=== PATIENT | female | born 1940 | race Caucasian/White ===

== ENCOUNTER 2017-03-08 08:59 | Outpatient (CLI) | payer MEDICARE, MEDICAID ==
--- NOTE | 2017-03-09 15:01 | DEXA Report ---
DEXA SCAN: 03/08/2017 CLINICAL INDICATION: Osteoporosis. TECHNIQUE: Dual energy x-ray absorptiometry (DXA) was performed on a [employer] system. Regions measured are the AP spine, femoral neck, and, if needed, forearm. COMPARISON: None. In accordance with the International Society for Clinical Densitometry (ISCD) guidelines, data from previous exams may be reanalyzed using current recommendations and techniques. This is done to allow a more accurate basis for comparison with the current study. FINDINGS: The data for the lumbar spine is as follows: REGION BMD (g/cm/cm) T-SCORE Z-SCORE L1 0.536 -4.9 -2.8 L2 0.674 -4.4 -2.3 L3 0.941 -2.2 -0.1 L4 0.854 -2.9 -0.8 TOTAL 0.750 -3.6 -1.5 NOTE: All evaluable vertebrae are used for classification. The data for the hip is as follows: REGION BMD (g/cm/cm) T-SCORE Z-SCORE Neck 0.614 -3.0 -0.9 TOTAL 0.644 -2.9 -0.9 NOTE: The femoral neck or total proximal femur, whichever is lowest, is used for classification. * Denotes significant change at the 95% confidence level. Denotes dissimilar scan types or analysis methods. IMPRESSION: THE WHO CLASSIFICATION BASED ON THE INTERNATIONAL REFERENCE STANDARD IS OSTEOPOROSIS. THE FRACTURE RISK IS HIGH. RECOMMENDATION: Patients with diagnosis of osteoporosis or osteopenia should have regular bone mineral density assessment. For those eligible for Medicare, routine testing is allowed once every 2 years. Testing frequency can be increased for patients who have rapidly progressing disease or for those who are receiving medical therapy to restore bone mass. COMMENT: World Health Organization (WHO) definitions for osteoporosis and osteopenia: NORMAL BMD: T-score at -1.0 or higher, fracture risk is low. OSTEOPENIA BMD: T-score between -1.0 and -2.5, fracture risk is increased. OSTEOPOROSIS BMD: T-score at -2.5 or lower, fracture risk high. National Osteoporosis Foundation recommends: 1. Obtain adequate dietary calcium (at least 1200 mg per day) and vitamin D (400 -800 international units per day). 2. Participate, as appropriate, in regular weightbearing and muscle- strengthening exercise. 3. Avoid tobacco use and reduce alcohol and caffeine intake. 4. For more detailed information see the website at www.NOF.org. MTDD
== END 2017-03-08 09:00 | disposition home or self-care (01) ==
LOC: DI 08:59
PROVIDERS: ATTEND Physician Assistant
DX: M81.0 Age-related osteoporosis without current pathological fracture (principal)
CPT/HCPCS: 77080

== ENCOUNTER 2017-03-08 09:03 | Outpatient (CLI) | payer MEDICARE, MEDICAID | END 2017-03-08 09:04 | disposition home or self-care (01) | LOC: DI 09:03 | PROVIDERS: ATTEND Physician Assistant | DX: Z53.9 Procedure and treatment not carried out, unspecified reason (principal) ==

== ENCOUNTER 2017-03-22 10:50 | Outpatient (CLI) | payer MEDICARE, MEDICAID ==
--- NOTE | 2017-03-22 16:44 | Mammography Report ---
DIGITAL DIAGNOSTIC BILATERAL MAMMOGRAM: 03/22/2017 CLINICAL INDICATION: Focal right breast pain. TECHNIQUE: Bilateral CC and MLO views, right true lateral view and laterally exaggerated craniocauda l view. COMPARISON: 04/08/2015, 06/07/2013, 11/03/2011, 05/13/2010. The breasts demonstrate scattered fibroglandular densities bilaterally. Postreduction changes are st able. Coarse and punctate, typically benign calcifications are present. No suspicious masses, clust ered microcalcifications, or regions of architectural distortion are identified. Specifically, no ma mmographic abnormality is seen in the right lower-outer posterior breast, at the site indicated by th e markers. IMPRESSION: BENIGN FINDINGS. RECOMMENDATION: ROUTINE ANNUAL SCREENING UNLESS OTHERWISE CLINICALLY INDICATED. BIRADS CATEGORY: 2, BENIGN FINDINGS. STANDARD QUALIFYING STATEMENTS 1. This examination was reviewed with the aid of Computed-Aided Detection (CAD). 2. A negative or benign imaging report should not delay biopsy if clinically suspicious findings are present. Consider surgical consultation if warranted. More than 5% of cancers are not identified b y imaging. 3. Dense breasts may obscure an underlying neoplasm. JOB #: [id number] EXT JOB #:[id number]
== END 2017-03-22 10:51 | disposition home or self-care (01) ==
LOC: DI 10:50
PROVIDERS: ATTEND Physician Assistant
DX: N64.4 Mastodynia (principal)
CPT/HCPCS: 77066

== ENCOUNTER 2017-04-11 11:23 | Outpatient (CLI) | payer MEDICARE, MEDICAID ==
[2017-04-11 12:05] LABS: BASOPHILS % (AUTO) 0.3 %; EOSINOPHILS # (AUTO) 0.1 10^3/uL (0.0-0.7); EOSINOPHILS % (AUTO) 1.6 %; HGB - HEMOGLOBIN 12.4 g/dL (12.0-16.0); LYMPHOCYTES # (AUTO) 1.6 10^3/uL (1.5-3.5); LYMPHOCYTES % (AUTO) 26.9 %; MEAN CORPUSCULAR HEMOGLOBIN 26.2 pg (27.0-31.0); MEAN CORPUSCULAR HGB CONC 32.7 g/dL (32.0-36.0); MEAN CORPUSCULAR VOLUME 80.2 fL (81.0-99.0); MEAN PLATELET VOLUME 8.2 fL (7.9-10.8); MONOCYTES # (AUTO) 0.6 10^3/uL (0.0-1.0); MONOCYTES % (AUTO) 9.4 %; NEUTROPHILS # (AUTO) 3.8 10^3/uL (1.5-6.6); NEUTROPHILS % (AUTO) 61.8 %; NUCLEATED RED BLOOD CELLS AUTO 0.1 /100WBC; RED BLOOD COUNT 4.73 10^6/uL (4.20-5.40); RED CELL DISTRIBUTION WIDTH 15.2 % (12.0-15.0); UNCORRECTED WHITE BLOOD COUNT 6.1 x10^3/uL; WHITE BLOOD COUNT 6.1 x10^3/uL (4.8-10.8)
[2017-04-11 12:27] LABS: ALBUMIN/GLOBULIN RATIO 1.2 (1.0-2.2); BILIRUBIN,TOTAL 0.5 mg/dL (0.2-1.0); BUN - BLOOD UREA NITROGEN 22 mg/dL (6-20); CALCIUM 9.2 mg/dL (8.5-10.3); CARBON DIOXIDE - CO2 26 mmol/L (21-32); CHLORIDE 104 mmol/L (101-111); CHOL/HDL RATIO 7.4 (<4.4); CHOLESTEROL 302 mg/dL; CREATININE 0.6 mg/dL (0.4-1.0); GFR - MDRD 97 (>89); GLUCOSE 118 mg/dL (70-100); HDL CHOLESTEROL 41 mg/dL; LDL/HDL RATIO 4.9 (<4.4); SODIUM 139 mmol/L (135-145); TOTAL PROTEIN 7.6 g/dL (6.7-8.2); TRIGLYCERIDES 293 mg/dL; VLDL CHOLESTEROL 59 mg/dL
== END 2017-04-11 11:24 | disposition home or self-care (01) ==
LOC: LAB 11:23
PROVIDERS: ATTEND Physician Assistant
DX: M81.0 Age-related osteoporosis without current pathological fracture (principal); E87.2 Acidosis; Z79.899 Other long term (current) drug therapy
CPT/HCPCS: 36415; 80053; 80061; 82306; 85025

== ENCOUNTER 2017-05-02 11:12 | Outpatient (CLI) | payer MEDICARE, MEDICAID ==
[2017-05-02 13:27] LABS: HEMOGLOBIN A1C 0.66 g/dL
== END 2017-05-02 11:13 | disposition home or self-care (01) ==
LOC: LAB 11:12
PROVIDERS: ATTEND Physician Assistant
DX: R73.01 Impaired fasting glucose (principal)
CPT/HCPCS: 36415; 83036

== ENCOUNTER 2017-11-21 15:12 | Outpatient (CLI) | payer MEDICARE, MEDICAID | END 2017-11-21 15:13 | disposition EMS.NT | LOC: EMS 15:12 | PROVIDERS: ATTEND Surgery | DX: S00.571A Other superficial bite of lip, initial encounter (principal); W01.0XXA Fall on same level from slipping, tripping and stumbling without subsequent striking against object, initial encounter; Y93.01 Activity, walking, marching and hiking; Y92.480 Sidewalk as the place of occurrence of the external cause ==

== ENCOUNTER 2019-06-12 14:11 | Outpatient (CLI) | payer MEDICARE, MEDICAID ==
--- NOTE | 2019-06-13 09:04 | DEXA Report ---
Reason: HISTORY OF OSTEOPOROSIS Procedure Date: 06/12/2019 Accession Number: [id number] / [id number] Procedure: DEX - Dexa Spine and/or Hip CPT Code: FULL RESULT: EXAM: Dexa Spine and/or Hip DATE: 06/12/2019 3:00 PM CLINICAL HISTORY: HISTORY OF OSTEOPOROSIS. For follow-up TECHNIQUE: Dual energy x-ray absorptiometry (DXA) was performed on a [employer] System. Regions measured are the AP Spine, femoral neck, and if needed forearm. COMPARISON: 03/08/2017 In accordance with the International Society for Clinical Densitometry (ISCD) guidelines, data from previous exams may be reanalyzed using current recommendations and techniques. This is done to allow a more accurate basis for comparison with the current study. FINDINGS: The data for the lumbar spine is as follows: BMD (g/cm/cm) T-SCORE Z-SCORE REGION L1 0.656 -4.0 -1.7 L2 0.950 -2.1 0.2 L3 1.001 -1.7 0.6 L4 0.895 -2.5 -0.3 TOTAL 0.886 -2.4 -0.2 NOTE: All evaluable vertebrae are used for classification The data for the hip is as follows: BMD (g/cm/cm) T-SCORE Z-SCORE REGION Neck 0.617 -3.0 -0.7 TOTAL 0.634 -3.0 -0.7 DXA RESULTS SUMMARY: Spine SCAN DATE A[age] BMD CHANGE VS CHANGE VS PREVIOUS PREVIOUS % 7[birth year]12[birth year]2019 [age] 0.89 0.136* 18.1* 03/08/2017 [age] 0.750 * Denotes significant change at the 95% confidence level. Denotes dissimilar scan types or analysis methods. DXA RESULTS SUMMARY: Hip SCAN DATE AGE BMD CHANGE VS CHANGE VS PREVIOUS PREVIOUS % 7/[birth year]2019 [age] 0.634 -0.010 -1.6 03/08/2017 [age] 0.644 * Denotes significant change at the 95% confidence level. Denotes dissimilar scan types or analysis methods. IMPRESSION: THE WHO CLASSIFICATION BASED ON THE INTERNATIONAL REFERENCE STANDARD IS OSTEOPOROSIS, REFERENCE LEFT HIP. THE FRACTURE RISK IS HIGH. RECOMMENDATION: Patients with diagnosis of osteoporosis or osteopenia should have regular bone mineral density assessment. For those eligible for Medicare, routine testing is allowed once every 2 years. Testing frequency can be increased for patients who have rapidly progressing disease or for those who are receiving medical therapy to restore bone mass. COMMENT: World Health Organization (WHO) definitions for osteoporosis and osteopenia: NORMAL BMD: T-score at -1.0 or higher, fracture risk is low OSTEOPENIA BMD: T-score between -1.0 and -2.5, fracture risk is increased. OSTEOPOROSIS BMD: T-score at -2.5 or lower, fracture risk is high. National Osteoporosis Foundation recommends: 1. Obtain adequate dietary calcium (at least 1200 mg per day) and vitamin D (400-800 international units per day). 2. Participate, as appropriate, in regular weightbearing and muscle-strengthening exercise. 3. Avoid tobacco use and reduce alcohol and caffeine intake. 4. For more detailed information see the website at www.NOF.org.
== END 2019-06-12 14:12 | disposition home or self-care (01) ==
LOC: DI 14:11
PROVIDERS: ATTEND Student in an Organized Health Care Education/Training Program
DX: M81.0 Age-related osteoporosis without current pathological fracture (principal)
CPT/HCPCS: 77080

== ENCOUNTER 2019-06-12 14:13 | Outpatient (CLI) | payer MEDICARE, MEDICAID ==
--- NOTE | 2019-06-13 09:25 | Mammography Report ---
Reason: SCREENING MAMMO Procedure Date: 06/12/2019 Accession Number: [id number] / [id number] Procedure: CHANDRA - Screening Mammo w/Jabari CPT Code: FULL RESULT: EXAM: Screening Mammo w/Jabari DATE: 06/12/2019 3:34 PM CLINICAL HISTORY: Routine screening TECHNIQUE: (B) - Bilateral CC and MLO views were obtained. COMPARISON: 03/22/2017, 04/08/2015, 06/07/2013 and 11/03/2011 PARENCHYMAL PATTERN: (F) - The breasts demonstrate diffuse fatty replacement bilaterally. FINDINGS: No significant interval change on the left. Multiple nodular densities and scattered benign-appearing calcifications are stable. On the right there is a new 5 mm nodule in the middle third of the upper outer breast approximately 6 cm from the nipple. There are no suspicious calcifications or areas of distortion. IMPRESSION: 1. Benign findings left breast. 2. Tiny 5 mm new nodule central right breast for which spot compression and true lateral views and possible ultrasound are suggested. RECOMMENDATION: (ADDMU) - Additional views using both Mammography and Ultrasound recommended. Right breast BI-RADS CATEGORY: (0) - Incomplete Examination - need additional evaluation. STANDARD QUALIFYING STATEMENTS: 1. This examination was not reviewed with the aid of Computer-Aided Detection (CAD). 2. A negative or benign imaging report should not preclude biopsy if clinically suspicious findings are present. 3. Dense breasts may obscure an underlying neoplasm. 4. This examination was reviewed with the aid of 3D breast imaging (tomosynthesis).
== END 2019-06-12 14:14 | disposition home or self-care (01) ==
LOC: DI 14:13
DX: Z12.31 Encounter for screening mammogram for malignant neoplasm of breast (principal); R92.8 Other abnormal and inconclusive findings on diagnostic imaging of breast
CPT/HCPCS: 77063; 77067

== ENCOUNTER 2019-07-05 07:23 | Outpatient (CLI) | payer MEDICARE, MEDICAID ==
--- NOTE | 2019-07-05 09:08 | Mammography Report ---
Reason: ABNORMAL MAMMOGRAM Procedure Date: 07/05/2019 Accession Number: [id number] / [id number] Procedure: CHANDRA - Diag Special Views Dig RT CPT Code: FULL RESULT: EXAM: Diag Special Views Dig RT DATE: 07/05/2019 8:10 AM CLINICAL HISTORY: Diagnostic examination. History of late childbearing and early menses. History of benign left and right breast biopsy. Patient is recalled from screening for a new right breast nodule. TECHNIQUE: (R) - Right spot CC, spot MLO and ML images as well as targeted right breast ultrasound are performed. COMPARISON: 06/12/2019 through 11/03/2011. PARENCHYMAL PATTERN: (F) - The breast(s) demonstrate(s) diffuse fatty replacement. FINDINGS: Is 0.3 cm isodense well-circumscribed nodule is confirmed on mammographic spot views and tomographic views approximately 6.5 cm from the nipple in the right central breast, approximately 8:00 position. Corresponding to the mammographic finding is a probably benign 0.3 x 0.4 cm benign on wider than tall well circumscribed lesion with internal separations, probably a benign cluster of microcysts, increased through transmission is not demonstrated potentially due to small size. There may be a small soft tissue component. Sonographically, the finding resides at the 8:00 position approximately 3 cm from the nipple. There are no suspicious masses, calcifications, or areas of distortion. IMPRESSION: Probably Benign. BI-RADS category 3. RECOMMENDATION: (6MOS) - Recommend 6 month follow-up exam. Right breast targeted ultrasound. BI-RADS CATEGORY: (3) - Probably Benign. STANDARD QUALIFYING STATEMENTS: 1. This examination was not reviewed with the aid of Computer-Aided Detection (CAD). 2. A negative or benign imaging report should not preclude biopsy if clinically suspicious findings are present. 3. Dense breasts may obscure an underlying neoplasm. 4. This examination was reviewed with the aid of 3D breast imaging (tomosynthesis).
== END 2019-07-05 07:24 | disposition home or self-care (01) ==
LOC: DI 07:23
PROVIDERS: ATTEND Family Medicine
DX: R92.8 Other abnormal and inconclusive findings on diagnostic imaging of breast (principal)
CPT/HCPCS: 76642

== ENCOUNTER 2020-11-25 14:42 | Outpatient (CLI) | payer MEDICARE, MEDICAID ==
--- NOTE | 2020-11-26 15:07 | Mammography Report ---
BILATERAL DIGITAL SCREENING MAMMOGRAM 3D/2D: 11/25/2020 CLINICAL: Routine screening. Comparison is made to exams dated: 06/12/2019 mammogram, 03/12/2017 mammogram, 04/08/2015 mammogram, 07/05 mammogram, and 05/09/2020 ultrasound - [facility]. The tissue of both breasts is predominantly fatty. No significant masses, calcifications, or other findings are seen in either breast. There has been no significant interval change. IMPRESSION: NEGATIVE There is no mammographic evidence of malignancy. A 1 year screening mammogram is recommended. This exam was interpreted at Station ID: [id number]. NOTE: For mammograms, a report in lay terms will be sent to the patient. Approximately 15% of breast malignancies will not be visualized mammographically. In the management of a palpable breast mass, a negative mammogram must not discourage biopsy of a clinically suspicious lesion. Electronically Signed By: Norberto Stein M.D. ar/penrad:11/25/2020 15:34:42 ACR BI-RADS Category 1: Negative 3341F PARENCHYMAL PATTERN: (F) - The breast(s) demonstrate(s) diffuse fatty replacement. BI-RADS CATEGORY: (1) - 1 RECOMMENDATION: (ANNUAL) - Recommend routine annual screening mammography. [id number] 1 year screening LATERALITY: (B)
== END 2020-11-25 14:43 | disposition home or self-care (01) ==
LOC: DI 14:42
DX: Z12.31 Encounter for screening mammogram for malignant neoplasm of breast (principal)

== ENCOUNTER 2021-05-04 07:52 | Outpatient (CLI) | payer MEDICARE, MEDICAID ==
--- NOTE | 2021-05-04 11:08 | CT Report ---
PROCEDURE: MAXILLOFACIAL WO INDICATIONS: Cyst of Jaw TECHNIQUE: Noncontrast 1.5 mm thick axial images acquired from the mandible through the frontal sinuses, with co tiffany and sagittal reformatting. For radiation dose reduction, the following was used: automated ex posure control, adjustment of mA and/or kV according to patient size. COMPARISON: None. FINDINGS: Image quality: Degraded by beam hardening artifact related to metallic orthopedic hardware. Bones and teeth: Upper left second and third molars are absent. Upper right third molar is absent. Th e lower left third molar is absent. Lower right second and third molars are absent. 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 Diffuse thickening of the left lat eral maxillary sinus wall/inferior left orbital wall which could be due to chronic inflammation or fi brous dysplasia. Nasal bones are intact. A large defect is noted in the anterior nasal septum compati ble with dehiscence Visualized portions of the mandible demonstrate no fractures or subluxation. Zyg omatic arches are intact. Pterygoid plates are intact. Visualized portions of the skull base and au ditory canals are intact. Cervical spine degenerative disc changes. Sinuses: Mucosal thickening noted in the left maxillary sinus, left ethmoid air cells, the left front al sinus and the bilateral sphenoid sinuses. Mastoid air cells are aerated. Soft tissues: No edema, masses, or fluid collections. No enlarged lymph nodes. No soft tissue lace rations or debris. Vascular: Visualized vascular structures appear normal in the absence of contrast. Atherosclerotic c alcifications noted in the cavernous and clinoid segments of the internal carotid arteries bilaterall y. Bony vascular foramina and canals are intact. 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 3. Diffuse thickening of the left lateral maxillary sinus wall/left inferior orbital wall which could be due to chronic inflammation versus fibrous dysplasia. 4. Mucosal thickening involving the sphenoid sinuses bilaterally, left maxillary sinus, left ethmoid air cells and left frontal sinus. Reviewed by: Argentina Dan MD, PhD on 05/04/2021 11:06 AM PDT Approved by: Argentina Dna MD, PhD on 05/04/2021 11:06 AM PDT Station ID: [id number]
== END 2021-05-04 07:53 | disposition home or self-care (01) ==
LOC: LAB 07:52 → DI 07:53
PROVIDERS: ATTEND Dentist Oral and Maxillofacial Surgery
DX: M27.40 Unspecified cyst of jaw (principal); J32.0 Chronic maxillary sinusitis
CPT/HCPCS: 36415; 82565

== ENCOUNTER 2021-05-18 11:40 | Day surgery (SDC) | payer MEDICARE ==
[~2021-05-18 11:40] MED LIST: CHLORHEXIDINE GLUCONATE 15 ML UDC PO ONE; ceFAZolin 2 GM/50 ML 2 GM/50 ML BAG IV ONE
[2021-05-18] MEDS ORDERED: LACTATED RINGERS 1,000 ML IV ONE ×2 (11:42→15:16)
[2021-05-18] MEDS ORDERED: BUPIVACAINE 0.5%-EPI 1:200000 PF 30 ML VIAL ONE ×2 (12:04→12:18)
--- NOTE | 2021-05-18 12:44 | ANESTHESIA ---
Pre-Anesthesia VS, & Labs - Diagnosis cyst of the jaw - Procedure excision benign tumor or cyst of maxilla Vital Signs: Temp Pulse Resp BP Pulse Ox 36.4 C L 99 12 127/81 H 100 05/18/21 12:00 05/18/21 12:00 05/18/21 12:00 05/18/21 12:00 05/18/21 12:00 Height: 4 ft 11 in Weight (kg): 47.5 kg Body Mass Index: 21.1 BMI Classification: Healthy weight - NPO >8 hours - Is Patient ?: No - Lab Results Current Lab Results: Laboratory Tests 05/18/21 12:24: POC Whole Bld Glucose 97 Home Medications and Allergies Home Medications: Ambulatory Orders Alendronate [Fosamax] 70 mg PO ONCE 05/07/21 Memantine HCl [Namenda] 10 mg PO BID 05/07/21 Mirtazapine 22.5 mg PO DAILY PM 05/07/21 Ascorbic Acid [Vitamin C] 500 mg PO DAILY 05/18/21 Calcium Carbonate [Calcium] 1,200 mg PO DAILY 05/18/21 Multivitamin 1 each PO DAILY 05/18/21 Aspirin 81 mg ORAL DAILY 11/19/13 Cholecalciferol (Vitamin D3) [Vitamin D] 2,000 unit PO DAILY 06/14/17 Metformin HCl 500 mg PO DAILY 06/14/17 Rosuvastatin Calcium 40 mg PO QPM 06/14/17 lisinopriL [Lisinopril] 2.5 mg PO DAILY 06/14/17 Alendronate [Fosamax] 70 mg PO ONCE 05/07/21 Memantine HCl [Namenda] 10 mg PO BID 05/07/21 Mirtazapine 22.5 mg PO DAILY PM 05/07/21 Ascorbic Acid [Vitamin C] 500 mg PO DAILY 05/18/21 Calcium Carbonate [Calcium] 1,200 mg PO DAILY 05/18/21 Multivitamin 1 each PO DAILY 05/18/21 Allergies/Adverse Reactions: Allergies Allergy/AdvReac Type Severity Reaction Status Date / Time Iodine and Iodide Containing Allergy Unknown Verified 06/14/17 16:31 Produc shellfish derived Allergy Unknown Verified 06/14/17 16:31 Anes History & Medical History - Anesthetic History Anesthesia Complications: reports: No previous complications - Medical History Cardiovascular: reports: High cholesterol Gastrointestinal: reports: None, GERD Urinary: reports: Chronic bladder infection Musculoskeletal: reports: Osteoarthritis, Osteoporosis, Chronic back pain Endocrine/Autoimmune: reports: Type 2 diabetes Skin: reports: None Smoking Status: Never smoker History of Cancer?: No - Surgical History General: reports: Colonoscopy, Other Eyes Ears Nose Throat (EENT): reports: Tonsil/Adenoidectomy, Other Urologic: reports: Bladder surgery Gynecologic: reports: Breast reduction Orthopedic: reports: Carpal Tunnel surgery Exam General: Alert, Oriented x3 Dental: WNL Mouth Opening: Greater than 4 Fingerbreadths Neck Mobility: Normal Mallampati classification: III Respiratory: Lungs clear Cardiovascular: Regular rate, Normal S1, Normal S2 Plan Anesthesia Type: General Consent for Procedure(s) Verified and Reviewed: Yes Code Status: Attempt Resuscitation ASA classification: 2-Mild systemic disease Is this case an emergency?: No
[2021-05-18] MEDS ORDERED: MORPHINE 2 MG/ML CARPUJECT IVP PRN (13:19)
[2021-05-18] MEDS ORDERED: HYDROmorphone 0.5 MG/0.5 ML SYRINGE IVP PRN (13:19)
[2021-05-18] MEDS ORDERED: ePHEDrine 50 MG/ML VIAL IVP PRN (13:19)
[2021-05-18] MEDS ORDERED: METOCLOPRAMIDE 10 MG/2 ML VIAL IVP PRN (13:19)
[2021-05-18] MEDS ORDERED: fentaNYL 100 MCG/2 ML VIAL IVP PRN (13:19)
[2021-05-18] MEDS ORDERED: NALOXONE 0.4 MG/ML VIAL IVP PRN (13:19)
[2021-05-18] MEDS ORDERED: ONDANSETRON 4 MG/2 ML VIAL IVP PRN (13:19)
[2021-05-18] MEDS ORDERED: ATROPINE ABBOJECT 1 MG/10 ML SYRINGE IVP PRN (13:19)
[2021-05-18] MEDS ORDERED: fentaNYL 100 MCG/2 ML VIAL ONE (13:47)
[2021-05-18] MEDS ORDERED: DEXAMETHASONE 4 MG/ML VIAL ONE (13:48)
[2021-05-18] MEDS ORDERED: PROPOFOL 200 MG/20 ML VIAL IVP ONE (13:48)
[2021-05-18] MEDS ORDERED: LIDOCAINE-MPF 2% 5 ML VIAL ONE (13:48)
[2021-05-18] MEDS ORDERED: ROCURONIUM 50 MG/5 ML VIAL ONE (13:48)
[2021-05-18] MEDS ORDERED: ONDANSETRON 4 MG/2 ML VIAL ONE (13:48)
[2021-05-18] MEDS ORDERED: LACTATED RINGERS 1,000 ML IV SCH (14:00)
[2021-05-18] MEDS ORDERED: SUCCINYLCHOLINE 200 MG/10 ML VIAL ONE (14:04)
[2021-05-18] MEDS ORDERED: BUPIVACAINE 0.5%-EPI 1:200000 PF 30 ML VIAL SUBQ ONE ×2 (14:39)
[2021-05-18] MEDS ORDERED: SUGAMMADEX 200 MG/2 ML VIAL IVP ONE (15:09)
--- NOTE | 2021-05-18 15:47 | OPERATIVE REPORT ---
Operative Report - General Procedure Date: 05/18/21 Planned Procedure: 1. Removal of cyst from the L maxilla 2. Removal of teeth #12,14 Pre-Op Diagnosis: Cyst of the left maxilla, necrotic teeth #12,14 Procedure Performed: 1. Removal of 2.5 cm cyst from the L maxilla 2. Removal of teeth #12,14 3. Closure of oral antral fistula 4. Advancement of soft tissue flap to cover the defect, buccal fat pad advancement flap. Post Op Diagnosis: Cyst of the left maxilla, necrotic teeth, oroantral fistula - Procedure Note Primary Surgeon: Chay Martinez Anesthesia Provider: Junior Cortés Anesthesia Technique: General ET tube, Local Pathology: 2.5 cm cyst of the L maxilla, submitted to pathology. Teeth discarded. Estimated Blood Loss (mL): 40 Indications: Kady is an 81 yo F who came into my clinic with L facial swelling about a month ago. CBCT and clinical examination was consistent with infect cyst of the L maxilla of unclear etiology. She also had pain from teeth #12,14, which were necrotic. It was decided that removal and biopsy of the cyst was indicated, with removal of teeth #12,14. The RBAs of the procedure were discussed with the patient and healthcare technician, including pain, swelling, nerve damage, sinus infection, need for further surgeries, infection, damage to adjacent teeth, oroantral fistula creation, and medication related osteonecrosis of the jaws, which was emphasized. Adequate time was given to answer all questions and informed consent was obtained. Findings: The patient was brought to the main operating room and placed in a supine position on the operating table. General anesthesia was [id number] by the anesthesia team and the airway was secured with an oral ELYSE taped to the R side of the mouth. All pressure points were padded and checked. The eyes were protected with Tegaderms. The neck was carefully handled by anesthesia and throughout the procedure. A formal timeout was executed. The patient was prepped and draped in the standard sterile fashion for an intraoral surgical procedure. A throat pack was placed, comprised of a single Raytec. Local anesthesia was acheived w/ 8cc of 0.5% bupivacaine w/ epi. Attention was directed to the L maxilla. A crestal incision was made. Bone was removed aound tooth #14. Teeth #12,14 were removed whole. The bone was smoothed and the sites were irrigated. The buccal flap was elevated superiorly to the zygomatic buttress in a subperiosteal plane. The entire lateral wall of the maxilla where it approximated the cyst had eroded away. A plane of dissection was carefully created between the cyst and the soft tissue. A palatal full thickness flap was elevated. The cyst was elevated away from the bone with a series of curettes and a J freer. The cyst was removed. Additional tissue was removed where the cyst had perforated the lateral wall of the maxilla and invaded into the infratemporal fossa. The bone was smoothed and the site was irrigated copiously. A small perforation into the maxillary sinus was noted. The bone the mouth from the sinus was left mostly intact because peripheral ostectomy would have created a large OAF that would be difficult to manage surgically and may necessitate an obturator. If the diagnosis is an aggressive tumor, she will need monitoring for recurrence. The periosteum was perforated during the cyst removal and a curved dolly was used to encourage the already burgeoning buccal fat pad to prolapse into the surgical field. It was gently advanced anteromedially and secured to the palatal soft tissues w/ 4-0 chromic gut. The periosteum of the buccal flap was scored and the flap was advanced over the site passively w/ 4-0 chromic gut sutures. The mouth was rinsed free of debris. The throat pack was removed. The patient was extubated and emerged uneventfully from anesthesia. Transferred to PACU in stable condition. Complications: none
[2021-05-18] MEDS ORDERED: oxyCODONE 5 MG TABLET PO PRN (15:54)
[2021-05-18] MEDS ORDERED: KETOROLAC 15 MG/ML VIAL IVP PRN (15:55)
[2021-05-18] MEDS ORDERED: KETOROLAC 15 MG/ML VIAL ONE (15:58)
[2021-05-18 16:07] VITALS: BP 141/97
--- NOTE | 2021-05-18 16:46 | ANESTHESIA POST OP EVALUATION ---
Anesthesia Post Eval - Post Anesthesia Eval Vitals: Last Vital Signs Temp 36.3 C L 05/18/21 16:01 Pulse 110 H 05/18/21 16:01 Resp 14 05/18/21 16:01 BP 141/97 H 05/18/21 16:01 Pulse Ox 96 05/18/21 16:01 CV Function Including HR & BP: Stable Pain Control: Satisfactory Nausea & Vomiting: Negative Mental Status: Baseline Respiratory Status: Airway Patent Hydration Status: Satisfactory Anesthesia Complications: None
== END 2021-05-18 11:41 | disposition home or self-care (01) ==
LOC: SDS 11:40
PROVIDERS: ATTEND Dentist Oral and Maxillofacial Surgery
PROC: 0NBR0ZZ Excision of Maxilla, Open Approach (ICD-10-PCS; principal; 2021-05-18 13:00)
DX: K09.8 Other cysts of oral region, not elsewhere classified (principal); J32.0 Chronic maxillary sinusitis; K04.1 Necrosis of pulp; E11.9 Type 2 diabetes mellitus without complications; M81.0 Age-related osteoporosis without current pathological fracture; E78.00 Pure hypercholesterolemia, unspecified; F03.90 Unspecified dementia, unspecified severity, without behavioral disturbance, psychotic disturbance, mood disturbance, and anxiety; Z79.82 Long term (current) use of aspirin; Z79.84 Long term (current) use of oral hypoglycemic drugs; Z79.899 Other long term (current) drug therapy
CPT/HCPCS: 21048; 30580; A9270; J0330; J0690; J7120

== ENCOUNTER 2022-04-05 09:41 | Outpatient (CLI) | payer MEDICARE ==
[2022-04-05 10:07] LABS: VBG PH 7.353 (7.31-7.41)
[2022-04-05 10:08] LABS: CALCIUM, IONIZED 1.19 mmol/L (1.15-1.33)
[2022-04-05 10:34] LABS: CREATININE 1.2 mg/dL (0.4-1.0); POTASSIUM 3.6 mmol/L (3.5-5.0)
[2022-04-05 12:40] LABS: ESTIMATED AVERAGE GLUCOSE 154 mg/dL (70-100)
== END 2022-04-05 09:42 | disposition home or self-care (01) ==
LOC: LAB 09:41
PROVIDERS: ATTEND Family Medicine
DX: E11.8 Type 2 diabetes mellitus with unspecified complications (principal); Z51.81 Encounter for therapeutic drug level monitoring
CPT/HCPCS: 36415; 82043; 82306; 82330; 82565; 82570; 83036; 84132

== ENCOUNTER 2022-04-05 10:05 | Outpatient (CLI) | payer MEDICARE ==
--- NOTE | 2022-04-06 09:17 | Mammography Report ---
BILATERAL DIGITAL SCREENING MAMMOGRAM 3D/2D WITH EXAGGERATED CC: 04/05/2022 CLINICAL: Routine screening. Comparison is made to exams dated: 11/25/2020 mammogram, 05/09/2020 ultrasound, 07/05/2019 ultrasound, 07/05/2019 mammogram, and 06/12/2019 mammogram - [facility]. The tissue of both breas ts is predominantly fatty. No significant masses, calcifications, or other findings are seen in either breast. There has been no significant interval change. IMPRESSION: NEGATIVE There is no mammographic evidence of malignancy. A 1 year screening mammogram is recommended. Based on the Tyrer Cuzick model (a risk assessment model) the patients lifetime risk is 1.0% and her 10 year risk is 0.0%. According to the ACR, ACS, and NCCN guidelines, an annual breast MRI exam harsha g with mammogram is recommended if the patients lifetime risk is 20% or greater. This exam was interpreted at Station ID: [id number]. NOTE: For mammograms, a report in lay terms will be sent to the patient. Approximately 15% of breast malignancies will not be visualized mammographically. In the management of a palpable breast mass, a negative mammogram must not discourage biopsy of a clinically suspicious lesion. Electronically Signed By: Freddy Acevedo M.D., jr/yoselyn:04/05/2022 13:05:15 ACR BI-RADS Category 1: Negative 3341F PARENCHYMAL PATTERN: (F) - The breast(s) demonstrate(s) diffuse fatty replacement. BI-RADS CATEGORY: (1) - 1 RECOMMENDATION: (ANNUAL) - Recommend routine annual screening mammography. [id number] 1 year screening LATERALITY: (B)
== END 2022-04-05 10:06 | disposition home or self-care (01) ==
LOC: DI 10:05
DX: Z12.31 Encounter for screening mammogram for malignant neoplasm of breast (principal)

== ENCOUNTER 2022-04-13 13:50 | Outpatient (CLI) | payer MEDICARE | END 2022-04-13 13:51 | disposition home or self-care (01) | LOC: LAB 13:50 | PROVIDERS: ATTEND Family Medicine | DX: E11.8 Type 2 diabetes mellitus with unspecified complications (principal); Z51.81 Encounter for therapeutic drug level monitoring | CPT/HCPCS: 82043 ==

== ENCOUNTER 2022-10-28 10:12 | Outpatient (CLI) | payer MEDICARE ==
[2022-10-28 10:44] LABS: ALBUMIN 4.4 g/dL (3.2-5.5); ALBUMIN/GLOBULIN RATIO 1.3 (1.0-2.2); ALKALINE PHOSPHATASE 67 IU/L (42-121); ALT ALANINE AMINOTRANSFERASE 28 IU/L (10-60); AST ASPARTATE AMINOTRANSFERASE 29 IU/L (10-42); BILIRUBIN,TOTAL 0.6 mg/dL (0.2-1.0); BUN - BLOOD UREA NITROGEN 27 mg/dL (6-20); CALCIUM 9.5 mg/dL (8.5-10.3); CARBON DIOXIDE - CO2 26 mmol/L (21-32); CHLORIDE 101 mmol/L (101-111); CHOL/HDL RATIO 2.7 (<4.4); CHOLESTEROL 152 mg/dL; CREATININE 1.3 mg/dL (0.4-1.0); GFR - MDRD 39 (>89); GLUCOSE 206 mg/dL (70-100); HDL CHOLESTEROL 57 mg/dL; LDL CHOLESTEROL,CALCULATED 48 mg/dL; LDL/HDL RATIO 0.8 (<4.4); POTASSIUM 3.4 mmol/L (3.5-5.0); SODIUM 137 mmol/L (135-145); TOTAL PROTEIN 7.9 g/dL (6.7-8.2); TRIGLYCERIDES 235 mg/dL; VLDL CHOLESTEROL 47 mg/dL
[2022-10-28 13:31] LABS: ESTIMATED AVERAGE GLUCOSE 154 mg/dL (70-100)
== END 2022-10-28 10:13 | disposition home or self-care (01) ==
LOC: LAB 10:12
PROVIDERS: ATTEND Family Medicine
DX: Z00.00 Encounter for general adult medical examination without abnormal findings (principal)
CPT/HCPCS: 36415; 80053; 80061; 83036; 83721

== ENCOUNTER 2023-09-15 06:02 | Outpatient (CLI) | payer MEDICARE | END 2023-09-15 06:03 | disposition E | LOC: EMS 06:02 ==